=== PATIENT | female | born 1960 | race American Indian/Alaskan Native ===

== ENCOUNTER 2023-05-09 19:14 | Observation (INO) | payer OTHER ==
[~2023-05-09] VITALS: Ht 157.5 cm; Wt 79.8 kg
[2023-05-09 19:42] LABS: COLLECTION METHOD CLEAN CATCH
[2023-05-09 19:47] LABS: MUCOUS Present (NOT PRESENT); PH 5.5 (5-8); URINE APPEARANCE Hazy (CLEAR/HAZY); URINE BACTERIA None Seen /hpf (NONE SEEN); URINE BLOOD 2+ (NEGATIVE); URINE COLOR Yellow (YELLOW); URINE GLUCOSE Negative (NEGATIVE); URINE KETONE 2+ (NEGATIVE); URINE NITRATE Negative (NEGATIVE); URINE PROTEIN(semi-quant) Negative (NEGATIVE); URINE RBC 0-2 /hpf (0-2); URINE UROBILINOGEN 0.2 (NEGATIVE)
[2023-05-09 20:16] LABS: HEMATOCRIT 40.8 % (37.0-47.0); HEMOGLOBIN 13.4 g/dl (12.5-16.0); MEAN CELL VOLUME 93 fl (80.0-100.0); MEAN CORPUSCULAR HEMOGLOBIN 31 pg (27-31); MEAN CORPUSCULAR HGB CONC 33 g/dl (33.0-37.0); MEAN PLATELET VOLUME 10.6 fl (7.4-10.4); PLATELET COUNT 249 K/mm3 (130-400); REDCELL DISTRIBUTION WIDTH-CV 12.8 % (11.5-14.5)
[2023-05-09 20:37] LABS: BAND 3 % (0-10); LYMPHOCYTE 10 % (20.0-51.0); NEUTROPHILS 76 % (42.0-75.2); PLATELET ESTIMATE NORMAL (NORMAL)
[2023-05-09 20:39] LABS: ALBUMIN 4.1 gm/dL (3.4-4.8); BILIRUBIN,TOTAL 0.6 mg/dL (0.2-1.2); C-REACTIVE PROTEIN 0.8 mg/dL (0.00-0.50); CREATININE, serum 0.8 mg/dL (0.57-1.11); HYPOCHROMIA 1+; TOTAL PROTEIN 7.1 gm/dL (6.2-8.1)
[2023-05-09] MEDS ORDERED: MAGNESIUM200 MG PO (22:21)
[2023-05-09] MEDS ORDERED: EFFEXOR 50M50 MG/TAB PO (22:22)
[2023-05-09] MEDS ORDERED: ALAVERT10 M1 PO (22:23)
[2023-05-09] MEDS ORDERED: [UNRECOGNIZED DRUG - OTHER] TD (22:25)
[2023-05-09] MEDS ORDERED: CLIMARA TD (22:25)
[2023-05-09] MEDS ORDERED: NATESTO5.5 MG/Act NS (22:28)
[2023-05-09] MEDS ORDERED: MACUGUARD PO (22:57)
[2023-05-09] MEDS ORDERED: LIOTHYRONINE PO (22:57)
[2023-05-09] MEDS ORDERED: LEVOTHYROXINE PO (22:58)
--- NOTE | 2023-05-09 23:04 | NUR ---
RECEIVED REPORT FROM [facility]. WAITING ON PATIENT'S ARRIVAL TO ROOM 342 FROM [facility]
--- NOTE | 2023-05-09 23:30 | NUR ---
PATIENT REPORTS THEY FOLLOW A GLUTEN FREE DIET AT HOME.
[2023-05-09 23:32] VITALS: BP 141/62; PULSE 66; TEMP 98.5
[2023-05-10] VITALS (11 sets, daily range): BP systolic 106–138; BP diastolic 49–66; PULSE 62–89; TEMP 98–99.2
--- NOTE | 2023-05-10 00:31 | NUR ---
PATIENT ARRIVED TO UNIT PER W.C., FOR ADMIT TO ROOM 342.
--- NOTE | 2023-05-10 07:12 | NUR ---
PT TO SURGERY AT THIS TIME WITH
--- NOTE | 2023-05-10 07:21 | NUR ---
CHANGE OF SHIFT REPORT GIVEN TO DAY SHIFT RNKATIE.
[2023-05-10] MEDS ORDERED: NORCO 325 MG-51 TAB PO (08:16)
[2023-05-10] MEDS ORDERED: MOTRIN 600600 MG/TAB PO (08:16)
[2023-05-10] MEDS ORDERED: AMOXICILLIN 8751 TAB PO (08:17)
--- NOTE | 2023-05-10 08:21 | NUR ---
PT UP FOR BREAKFAST. AM MEDS GIVEN ORDERED. DRESSING CHANGE COMPLETE BY KELVIN HARDING. PT TOLERATED WELL. PLAN ON PICC LINE PLACEMENT, KEIRA ARANDA AIV AWARE. IV CURRENTLY RUNNING TO .
--- NOTE | 2023-05-10 08:28 | NUR ---
PT CURRENTLY IN SURGERY FOR [facility].
--- NOTE | 2023-05-10 09:06 | NUR ---
PT TO ROOM 342 PER BED WITH REPORT FROM JUDITH RN @[id number], PT IS DROWSEY BUT AROUSES TO VERBAL. LUNGS CTA, BOWEL SOUNDS HYPO, LAP SITES X3 CDI, SCDS PLACED BILATERALLY. PT DENIES NEEDS AT THIS TIME. CONTINUING POC. POSSIBLE DISCHARGE LATER TODAY OR TOMMORROW.
--- NOTE | 2023-05-10 09:27 | NUR ---
Smt Technician met with Patient at bedside to conduct Care Managment Assessment and discuss discharge planning. Patient lives in [place], [place] and is in [place], [place] to assist her mother until May. Patient states to be established with Dr. Bishop and is covered by [employer] for insurance. Patient requests discharge medications be sent to [facility] in [place]. Patient denies the use of DME and endorses independent ADL/IADLs prior to admission. Patient states that her sister and nephew are available to assist Patient and her mother when Patient discharges. Patient states that her sisterTana is her DPOA. Discharge Plan: Mother's home in [place] with family support.
--- NOTE | 2023-05-10 10:33 | NUR ---
Initial visit attempt; Patient sleeping, Densitometrist left card offering spiritual care and God's Blessings.
--- NOTE | 2023-05-10 12:45 | NUR ---
Fire Management Technician contacted Patient's sister/DPOAHC Lupe to update on discharge planning. Lupe reports to intend on supporting Patient when discharged. Discharge Plan: Home with family support.
--- NOTE | 2023-05-10 16:17 | NUR ---
DISCHARGE CRITERIA MET, DISCHARGE INSTRUCTIONS REVIWED WITH PT QUESTIONS SOLICITED AND ANSWERED. PT LEFT PER WHEEL CHAIR WITH STAFF.
== END 2023-05-10 16:18 | disposition home or self-care (01) ==
LOC: COL.ER 19:14 → SURG 21:51
PROVIDERS: Emergency Medicine; ADMIT Surgery
DX: K35.80 Unspecified acute appendicitis (principal)
CPT/HCPCS: G0378; J1100; J1885; J2270; J2405; J2543; J2704; J3010; J7030; Q9967